=== PATIENT | male | born 1950 | race Caucasian/White ===

== ENCOUNTER 2019-01-03 18:32 | Emergency (ER) | payer MEDICARE, OTHER ==
--- NOTE | 2019-01-03 19:09 | ED Physician Documentation ---
General Adult - HISTORIAN Historian: patient - HPI Stated Complaint: Altered Mental Status Chief Complaint: General Adult Additional Information: Patient presents to ED via second officer after becoming confused at home. Patient's son called police when his father became agitated at him. Patient reports his son yelled at him because he wasn't doing laundry the correct way. Son states patient overfilled the dryer causing a fire hazard. Patient has end stage liver cirrhosis s/p TIPS and was recently at [facility] in [place] were he was hospitalized for 10 days for his liver failure. He was discharged on 12/31/18. He is seen by Liver transplant team at [place]. Patient is alert and oriented x 4 upon arrival to ER. Onset: hours (1) Timing: still present - ROS CONST: denies: fever EYES/ENT: denies: problems with vision CVS/RESP: denies: chest pain, shortness of breath GI/: denies: abdominal pain, vomiting, nausea NEURO/PSYCH: denies: headache, difficulty with speech - PAST HX Past History: other (end stage liver disease) Other History: diabetes Type 2, hepatitis Surgeries/Procedures: none Allergies/Adverse Reactions: Allergies Allergy/AdvReac Type Severity Reaction Status Date / Time Penicillins Allergy Severe Anaphylaxis Verified 01/03/19 19:29 Sulfa (Sulfonamide Allergy Severe Anaphylaxis Verified 01/03/19 19:29 Antibiotics) sulfamethoxazole Allergy Severe Anaphylaxis Verified 01/03/19 19:29 [From Bactrim] trimethoprim [From Bactrim] Allergy Severe Anaphylaxis Verified 01/03/19 19:29 Home Medications: Ambulatory Orders Medication Instructions Recorded Bupropion HCl [Wellbutrin Sr] 100 mg PO DAILY 01/03/19 Docusate Sodium [Colace] 100 mg PO BID 01/03/19 Furosemide [Lasix] 40 mg PO BID 01/03/19 Lactulose [Constulose] 45 ml PO QID 01/03/19 Meclizine HCl [Motion-Time] 25 mg PO BID 01/03/19 Metformin HCl [Glucophage] 125 mg PO HS 01/03/19 Metformin HCl [Metformin HCl ER] 250 mg PO DAILY 01/03/19 Oxybutynin Chloride [Ditropan] 5 mg PO TID 01/03/19 Ranitidine HCl [Heartburn Relief] 150 mg PO BID 01/03/19 Spironolactone [Aldactone] 25 mg PO BID 01/03/19 Trazodone HCl 50 mg PO HS 01/03/19 - SOCIAL HX Smoking History: non-smoker Alcohol Use: none Drug Use: none - FAMILY HX Family History: No - VITAL SIGNS Vital Signs: Vital Signs Temp Pulse Resp BP Pulse Ox 98.7 F 67 22 96/34 100 01/03/19 18:35 01/03/19 18:35 01/03/19 18:35 01/03/19 18:35 01/03/19 18:35 - REVIEWED ASSESSMENTS Nursing Assessment Reviewed: Yes Vitals Reviewed: Yes Progress - Progress Progress: 2030 Patient's son is on the phone with GI information technology director Physician Gentry for possible admission. Patient's son states he will take him to [place] via private vehicle. We discussed patient does not meet admission criteria from our stand point. Ammonia level is pending, however, patient is completely oriented here. 2048 Patient son does not feel comfortable with patient going home by himself. He states the patient cannot take care of himself. 2100 Long discussion with son. Now he wants to take patient home and he will stay with him. He plans on taking him to [place] tomorrow morning. - EKG/XRAY/CT EKG: NSR Comments: 63 bpm ED Results Lab/Radiology - Lab Results Lab Results: UA - negative - Radiology Radiology Impressions: Report Submission Date: Jan 03, 2019 7:21:45 PM CDT Patient Study Name: OSCAR VASQUEZ Date: Jan 03, 2019 6:36:20 PM CDT Modality Type: CT Gender: M Description: : 48 Institution: [facility] Physician: GRACIELA VALDIVIA Computed tomography head without contrast History: Altered mental status Findings: Transverse brain sections are obtained without contrast revealing mild cerebral atrophy. Longoria-white differentiation is intact. There is no intracranial hemorrhage, mass effect, fluid collection, or skull fracture. Marked left maxillary sinus mucosal thickening and fluid are observed. Mild chronic right maxillary mucoperiosteal thickening is observed. Impression: 1. Mild cerebral atrophy. 2. Acute and chronic left maxillary sinusitis , and chronic right maxillary sinu sitis. Electronically signed on Jan 03, 2019 7:21:45 PM CDT by: Rod Humphrey - Orders Orders: ED Orders Category Date Time Status Place IV Lock 1T Care 01/03/19 18:[address] BRAIN W/O CONTRAST Routine Exams 01/03/19 Ordered AMMONIA Routine Lab 01/03/19 Ordered CBC/PLATELET/DIFF Routine Lab 01/03/19 Ordered CMP Routine Lab 01/03/19 Ordered NT-proBNP Stat Lab 01/03/19 Ordered EKG WITH COMPARISON Stat Ther 01/03/19 Ordered General Adult Physical Exam - PHYSICAL EXAM GENERAL APPEARANCE: no distress EENT: HAILY NECK: normal inspection, supple RESPIRATORY: no resp distress, breath sounds normal CVS: reg rate & rhythm, heart sounds normal ABDOMEN: soft, other (distended, fluid wave. ). No: tenderness BACK: normal inspection, no CVA tenderness SKIN: warm/dry, normal color EXTREMITIES: non-tender NEURO: oriented X3, motor nml Discharge Clincal Impression: End stage liver disease Referrals: Primary Doctor,No [Primary Care Provider] - 2 Days Additional Instructions: 1. Continue home medications as previously prescribed 2. Follow up with GI specialist at [place] as soon as possible 3. Return to ER for new or worsening symptoms. Condition: Stable Disposition: 01 HOME, SELF-CARE Decision to Admit: NO Date of Decison to Admit: 01/03/19 Decision Time: 21:01
[2019-01-03 19:27] LABS: MEAN CORPUSCULAR HEMOGLOBIN 30.7 pg (28.0-34.0)
[2019-01-03 19:28] LABS: BASOPHILS % 0.3 (0.0-1.5); NEUTROPHILS # 2.5 # k/uL (1.4-7.7)
--- NOTE | 2019-01-03 19:29 | Diagnostic Imaging Report ---
GRACIELA VALDIVIA [facility] [id number] [facility].[address] [id number] Report Submission Date: Jan 03, 2019 7:21:45 PM CDT Patient Study Name: OSCAR VASQUEZ Date: Jan 03, 2019 6:36:20 PM CDT Modality Type: CT Gender: M Description: : 48 Institution: [facility] Physician: GRACIELA VALDIVIA Computed tomography head without contrast History: Altered mental status Findings: Transverse brain sections are obtained without contrast revealing mild cerebral atrophy. Longoria-white differentiation is intact. There is no intracranial hemorrhage, mass effect, fluid collection, or skull fracture. Marked left maxillary sinus mucosal thickening and fluid are observed. Mild chronic right maxillary mucoperiosteal thickening is observed. Impression: 1. Mild cerebral atrophy. 2. Acute and chronic left maxillary sinusitis , and chronic right maxillary sinusitis. Electronically signed on Jan 03, 2019 7:21:45 PM CDT by: Rod MONTES
[2019-01-03 19:30] LABS: eGFR (Non-African) > 60
[2019-01-04 00:03] VITALS: BP 99/45
[2019-01-04 06:42] LABS: APPEARANCE,URINE CLEAR (CLEAR); COLOR,URINE YELLOW (YELLOW); OCCULT BLOOD,URINE NEGATIVE (NEGATIVE); PH URINE 6.5 (5.0 - 8.0); UROBILINOGEN URINE 0.2 Eu (0.2-1.0)
== END 2019-01-03 21:05 | disposition home or self-care (01) ==
LOC: ED 18:32
DX: N18.6 End stage renal disease (principal)
CPT/HCPCS: 36415; 70450; 80053; 81002; 82140; 83880; 85025; 99284; 99285; S1016